=== PATIENT | male | born 1960 | race Caucasian/White ===

== ENCOUNTER 2021-03-16 13:37 | Outpatient (REF) | payer BC, SELFPAY ==
--- NOTE | ~2021-03-16 | CT_ITS ---
EXAMINATION: CT CHEST WITHOUT CONTRAST CLINICAL INFORMATION: Solitary pulmonary nodule. COMPARISON: Previous chest CT scans most recent November 2017. TECHNIQUE: Multidetector volumetric CT imaging of the chest was done. Axial MIP volume rendering provided. Sagittal and coronal reformatted images were obtained. This CT examination was performed using dose optimization techniques as appropriate, variously including the following: *Automated exposure control *Adjustment of mA and/or kV according to patient size (this includes techniques or standardized protocols for targeted exams where dose is matched to indication/reason for exam; i.e. 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 There is a 2 mm peripheral or subpleural right upper lobe nodule adjacent to the minor fissure axial image 267 series 4. There is a 2 mm right middle lobe nodule adjacent to the minor fissure axial image 271 series 4. These are new and probably represent subpleural lymph nodes. There is a 2 mm right lower lobe nodule axial image 314 series 4 that is stable. MEDIASTINUM: There are small mediastinal lymph nodes that are stable. The heart does not appear enlarged. There is mild coronary artery calcification. There is no pericardial effusion. The thoracic aorta is normal in caliber. PLEURA: There is no pleural effusion. No pleural mass or thickening. AXILLA: There are small bilateral axillary lymph nodes. No enlarged axillary lymph nodes or chest wall mass is seen. UPPER ABDOMEN: Unremarkable. OSSEOUS STRUCTURES: There are degenerative changes of the spine. CT/CT chest wo con IMPRESSION: Two small newly-appreciated nodules along the minor fissure probably representing subpleural lymph nodes. Otherwise small 2 mm pulmonary nodules are stable.
== END 2021-03-16 13:38 | disposition home or self-care (01) ==
LOC: HO.CT 13:37
PROVIDERS: Visit Provider Family Medicine
DX: R91.1 Solitary pulmonary nodule (principal)
CPT/HCPCS: 71250

== ENCOUNTER 2022-04-11 13:02 | Outpatient (REF) | payer BC, SELFPAY ==
--- NOTE | ~2022-04-11 | CT_ITS ---
EXAMINATION: CT CHEST WITHOUT CONTRAST CLINICAL INFORMATION: Follow-up pulmonary nodules COMPARISON: Previous chest CT most recent March 2021 TECHNIQUE: Multidetector volumetric CT imaging of the chest was done. Axial MIP volume rendering provided. Sagittal and coronal reformatted images were obtained. This CT examination was performed using dose optimization techniques as appropriate, variously including the following: *Automated exposure control *Adjustment of mA and/or kV according to patient size (this includes techniques or standardized protocols for targeted exams where dose is matched to indication/reason for exam; i.e. 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 There is a 2 mm peripheral or subpleural right middle lobe nodule adjacent to the minor fissure axial image 283 series 5 that is stable. There is a 2 mm right lower lobe nodule axial image 329 series 5 that is stable. The previously identified peripheral or subpleural right upper lobe nodule adjacent to the minor fissure is not appreciated. No new pulmonary nodule is seen. MEDIASTINUM: Normal heart size. No pericardial effusion. Upper normal-size ascending thoracic aorta. Small stable mediastinal lymph nodes. No enlarged lymph nodes. CORONARY ARTERY CALCIFICATION: Mild PLEURA: There is no pleural effusion. No pleural mass or thickening. AXILLA: No lymphadenopathy. UPPER ABDOMEN: Unremarkable. OSSEOUS STRUCTURES: There are degenerative changes of the spine. CT/CT chest wo IV con IMPRESSION: Small 2 mm right upper lobe nodule is not appreciated. Otherwise small bilateral pulmonary nodules are stable. Fleischner guidelines were followed.
== END 2022-04-11 13:03 | disposition home or self-care (01) ==
LOC: HO.CT 13:02
PROVIDERS: Visit Provider Family Medicine
DX: R91.8 Other nonspecific abnormal finding of lung field (principal); F17.210 Nicotine dependence, cigarettes, uncomplicated
CPT/HCPCS: 71250